=== PATIENT | male | born 1990 | race Caucasian/White ===

== ENCOUNTER 2024-07-10 21:33 | Emergency (ER) | payer BC ==
[~2024-07-10] VITALS: Ht 180.3 cm; Wt 74.8 kg
[2024-07-10] MEDS ORDERED: KETOROLAC TROMETHAMINE 30 MG INJ ONE ×2 (22:00→23:46)
[2024-07-10] MEDS: KETOROLAC TROMETHAMINE 30 MG INJ IM ONE (22:10)
[2024-07-10 23:47] LABS: BASOPHILS # (AUTO) 0.1 K/UL (0.0-0.2); BASOPHILS % (AUTO) 0.9 % (0.0-2.0); EOSINOPHILS # (AUTO) 0.2 K/uL (0.0-0.7); HEMATOCRIT 37.3 % (36.7-47.1); HEMOGLOBIN 12.3 g/dL (12.5-16.3); LYMPHOCYTES # (AUTO) 1.3 K/uL (0.8-4.8); LYMPHOCYTES % (AUTO) 21.7 % (20.5-51.5); MEAN CORPUSCULAR HGB CONC 33 g/dL (32.5-36.3); MEAN CORPUSCULAR VOLUME 88.3 fL (73.0-96.2); MONOCYTES # (AUTO) 0.7 K/uL (0.1-1.30); MONOCYTES % (AUTO) 11.3 % (0.0-11.0); NEUTROPHILS # (AUTO) 3.7 K/uL (1.8-8.9); NEUTROPHILS % (AUTO) 63.1 % (38.5-71.5); PLATELET COUNT (AUTO) 101 K/uL (152-348); RED BLOOD CELL COUNT(AUTO) 4.22 MIL/uL (4.06-5.63); RED CELL DISTRIBUTION WIDTH 15.6 % (12.1-16.2); WHITE BLOOD COUNT (AUTO) 5.8 K/uL (3.6-10.2)
[2024-07-10 23:50] LABS: DIFFERENTIAL COMMENT 1
[2024-07-10] MEDS ORDERED: ACETAMINOPHEN 500 MG TABLET ONE (23:55)
[2024-07-11] MEDS: KETOROLAC TROMETHAMINE 30 MG INJ IM ONE (00:02)
[2024-07-11] MEDS: ACETAMINOPHEN 500 MG TABLET PO ONE (00:03)
[2024-07-11 00:06] LABS: ALBUMIN 3.1 g/dL (3.4-5.0); BILIRUBIN,DIRECT 0.4 mg/dL (0.0-0.2); BILIRUBIN,TOTAL 0.6 mg/dL (0.2-1.0); CALCIUM 9.3 mg/dL (8.5-10.1); CREATININE 1.1 mg/dL (0.6-1.3); POTASSIUM 4.2 mmol/L (3.5-5.1); TOTAL PROTEIN, SERUM 7.7 g/dL (6.4-8.2)
[2024-07-11 01:28] VITALS: BP 117/85; TEMP 98.5; O2SAT 97
== END 2024-07-11 01:30 | disposition home or self-care (01) ==
LOC: ER 21:33
DX: K80.00 Calculus of gallbladder with acute cholecystitis without obstruction (principal); F10.10 Alcohol abuse, uncomplicated; Z90.49 Acquired absence of other specified parts of digestive tract; Z88.2 Allergy status to sulfonamides
CPT/HCPCS: 99285; 74176; 80076; 80048; 83690; 85025; 36415; 76870; 96372 ×2; J1885 ×2; A4606; A4663; A9150